=== PATIENT | male | born 1970 | race Caucasian/White ===

== ENCOUNTER 2024-10-10 08:14 | Outpatient (CLI) | payer MEDICARE, SELFPAY | END 2024-10-10 08:15 | disposition home or self-care (01) | PROVIDERS: Visit Provider Internal Medicine Nephrology | DX: R53.83 Other fatigue (principal); N18.9 Chronic kidney disease, unspecified | CPT/HCPCS: 80069; 82043; 82397; 82570; 83970; 87086 ==